=== PATIENT | male | born 1950 | race Caucasian/White ===

== ENCOUNTER 2018-08-15 07:02 | Day surgery (SDC) | payer MEDICARE, SELFPAY ==
--- NOTE | 2018-08-15 | PATH_ITS ---
[facility] Accession Number: [id number] . 01 Material submitted: . PART A: body - ULCER BIOPSIES PART B: colon - COLON POLYP BIOPSY AT 20CM . 01 Diagnosis: A. Stomach Ulcer, Biopsies: Gastric antral mucosa with mild chronic inflammation. Negative for Helicobacter organisms by immunohistochemistry. Negative for intestinal metaplasia, dysplasia or malignancy. . B. Colon Polyp at 20 cm, Biopsy: Colonic mucosa with prominent benign lymphoid aggregate. Negative for serrated lesion, dysplasia or malignancy. Additional step sections examined. V/08/17/2018 . 01 Electronically signed: . Bart Aldrich MD, PhD, Pathologist NPI- [id number] . 01 Gross description: . Part A: ULCER BIOPSIES: Received in formalin are 3 fragment(s) of davis, soft tissue measuring 0.1 x 0.1 x 0.1 cm to 0.3 x 0.2 x 0.2 cm which is entirely submitted and submitted entirely in 1 cassette(s) Part B: COLON POLYP BIOPSY AT 20CM: Received in formalin are 4 fragment(s) of davis, soft tissue measuring 0.1 x 0.1 x 0.1 cm to 0.4 x 0.3 x 0.2 cm which is entirely submitted and submitted entirely in 1 cassette(s) /D[facility] /DMC . 01 Microscopic: . A. An immunohistochemical stain is performed to evaluate for Helicobacter organisms and is negative. A control stain shows appropriate reactivity. . * This test was developed and its performance characteristics determined by [employer]. It has not been cleared or approved by the U.S. Food and Drug Administration. The FDA has determined that such clearance or approval is not necessary. This test is used for clinical purposes. It should not be regarded as investigational or for research. . 01 Pathologist provided ICD-10: K29.70, K63.5 . 01 CPT . 534461, 577331, R08329 Performed at: 01 [facility] [address], [place], [place] [id number] MD Amandeep Campos MD Phone: [phone]
[2018-08-15 07:25] VITALS: BP 151/84; PULSE 90; RESP 20; TEMP 36.7; O2SAT 100; BMI 26.6
[2018-08-15] MEDS: SODIUM CHLORIDE 0.9% 1,000 ML 100 ML IV (07:30)
--- NOTE | 2018-08-15 08:49 | PM.PREOP ---
Pre-operative Note Interval Note History & Physical reviewed/Exam performed by Physician: Yes Changes to H&P: No ASA Class (for procedural sedation): III
[2018-08-15] MEDS: LIDOCAINE 4% SOLN 50 ML 20 ML TOP (09:16)
--- NOTE | 2018-08-15 09:16 | P.OP.ENDO_ITS ---
Operative Date/Time/Diagnoses Date of procedure: 08/15/18 Time of procedure: 09:34 Pre-op diagnosis: Anemia cause uncertain rule out GI source Post-op diagnosis: same (Gastric ulcers. This was the most likely cause of anemia. Small polyps in the colon. Sigmoid diverticulosis.) Procedure & Clinicians Study performed: EGD with cold biopsy. Colonoscopy with cold biopsy Same procedure as scheduled: Yes Indications: Determine cause of anemia. Surgeon: Lalo Salazar Procedure Notes SCOAP/Timeout: Performed Procedure in detail: The patient had topical anesthetic applied to oropharynx. She was placed in left lateral decubitus position and underwent IV sedation directed by the surgeon consisting of fentanyl and Versed. A bite block was inserted and the scope was advanced through it into the esophagus. The esopha vasile was unremarkable. GE junction was noted at 41 cm from the incisors. The stomach insufflated well. the patient was noted to have multiple ulcers. One was in the pre-pyloric area and the others were in the proximal stomach. all were fairly superficial without evidence of clot . The pyloric channel was patent. The duodenum was unremarkable to the 4th part. The scope was brought back into the stomach and retroflexed. The proximal stomach was noted to have multiple small ulcers. There was no hiatal hernia seen. Biopsies were taken of the pre-pyloric and 1 ulcer in the body.. The scope was straightened and brought out through the esophagus again. No other lesions were seen. The scope was removed and the patient tolerated the procedure well. the patient was repositioned then for his colonoscopy. The patient was given additional fentanyl and Versed. Digital exam was remarkable for a very large prostate. The scope was inserted and advanced through the rectum into the sigmoid, descending, transverse, and ascending colon. The patient had sigmoid diverticulosis.. The cecum was reached identified by the ileocecal valve . The scope was gradually brought out. Polyps were found at 20 cm from the anal verge. These were removed with biopsy forceps. There were 2 of them.. The scope ultimately was retroflexed in the rectum. The appearance was remarkable for scarring on old hemorrhoidal disease.. The scope was removed and the patient tolerated the procedure well. prep was good. Scope withdrawal time: 10.5 minutes Sedation minutes: 50 Findings: diverticulosis (Sigmoid), gastric ulcer (Multiple), polyp (Small at 20 cm from the anal verge) and other findings (Large firm prostate) Specimen(s): other (Ulcer biopsies and polyps) Complications: none Recommendations: Colonscopy in 5 years and Other recommendation (EGD in 3 months.) Plan for aftercare: If H pylori found will add antibiotics to treatment regimen. Follow up: months (Three) Disposition: PACU
[2018-08-15] MEDS: TETRACAINE/BENZOCAINE/BUTAMBEN (CETACAINE) BOTTLE 1 SPRAY TOP (09:17)
[2018-08-15] MEDS: METOPROLOL TARTRATE 5 MG/5 ML INJ IV (09:34)
[2018-08-15] MEDS: fentaNYL 250 MCG/5 ML INJ IV (09:53)
[2018-08-15] MEDS: MIDAZOLAM 5 MG/5 ML VIAL IV (09:53)
[2018-08-15 09:56] VITALS: BP 108/73; PULSE 72; RESP 12; TEMP 35.6; O2SAT 100
[2018-08-15 10:01] VITALS: BP 106/68; PULSE 68; RESP 15; O2SAT 99
[2018-08-15 10:06] VITALS: BP 110/76; PULSE 74; RESP 14; O2SAT 100
--- NOTE | 2018-08-15 10:09 | SUR.PHASEI ---
Awake, oriented, swallowing w/o difficulty.
[2018-08-15 10:12] VITALS: BP 117/75; PULSE 75; RESP 12; TEMP 35.8; O2SAT 100
[2018-08-15 10:32] VITALS: BP 117/75; PULSE 62; RESP 16; TEMP 37; O2SAT 97
== END 2018-08-15 09:53 | disposition home or self-care (01) ==
PROVIDERS: Visit Provider Specialist
PROC: 0DJD8ZZ Inspection of Lower Intestinal Tract, Via Natural or Artificial Opening Endoscopic (ICD-10-PCS; CPT 45378; 2018-08-15 08:45)
PROC: 0DJ08ZZ Inspection of Upper Intestinal Tract, Via Natural or Artificial Opening Endoscopic (ICD-10-PCS; CPT 43235; 2018-08-15 08:45)
DX: K29.70 Gastritis, unspecified, without bleeding (principal); K25.9 Gastric ulcer, unspecified as acute or chronic, without hemorrhage or perforation; D64.9 Anemia, unspecified; Z80.0 Family history of malignant neoplasm of digestive organs; K57.30 Diverticulosis of large intestine without perforation or abscess without bleeding; N40.0 Benign prostatic hyperplasia without lower urinary tract symptoms; K63.5 Polyp of colon
CPT/HCPCS: 45380; 43239; 88305; 88342; 99152; 99153; J2250; J3010

== ENCOUNTER 2018-11-17 11:20 | Day surgery (SDC) | payer MEDICARE, SELFPAY ==
--- NOTE | 2018-11-17 | PATH_ITS ---
[facility] Accession Number: [id number] . 01 Material submitted: . gastrointestinal site - BIOPSY LESION ANTRUM . 02 Diagnosis: Biopsy, Gastric Antrum: Changes consistent with reactive gastropathy. Negative for evidence of neoplasm and/or significant atypia. MRV/11/20/2018 . 02 Electronically signed: . Prabhakar Grant MD, Pathologist NPI- [id number] . 01 Gross description: . BIOPSY LESION ANTRUM: Received in formalin are multiple fragment(s) of davis, soft tissue measuring 0.6 x 0.5 x 0.1 cm in aggregate submitted entirely in 1 cassette(s) /CKI /CKI . 02 Pathologist provided ICD-10: K31.89 . 02 CPT . 357138 Performed at: 01 [facility] [address] [id number] MD Amandeep Campos MD Phone: [phone] Performed at: 02 [facility] [address] [place], [place] [id number] MD Keila Mancini MD Phone: [phone]
--- NOTE | 2018-11-17 12:26 | PM.HP.1 ---
History of Present Illness Date Patient Seen: 11/17/18 Time Patient Seen: 12:26 Chief complaint: [id number] Narrative: The patient is a gentleman who had gastric ulcers diagnosed in August. He is here for follow-up exam to confirm healing he was asymptomatic then and except for gaining a little weight has not noticed any difference now. Patient History Medical History Anemia (Acute) Cancer of right lung (Acute) Lung cancer (Resolved) Surgical History History of lobectomy of lung (Resolved) Family History Father Cancer Diabetes mellitus Mother Diabetes mellitus Grandmother Diabetes mellitus Grandfather Diabetes mellitus Social History marital status: household members: spouse occupational status: previously employed Smoking Status: Never smoker alcohol intake: never substance use type: does not use Family & Social History Family History Father Cancer Diabetes mellitus Mother Diabetes mellitus Grandmother Diabetes mellitus Grandfather Diabetes mellitus Social History: household members spouse Tobacco & Substance use: Smoking Status Never smoker alcohol intake never Meds Home Medications Medication Instructions Recorded Confirmed Type acetaminophen 500 mg capsule 500 mg PO Q6H PRN 07/25/18 08/15/18 History ibuprofen 200 mg capsule 200 mg PO QID PRN 07/25/18 08/15/18 History melatonin 10 mg capsule 10 mg PO BEDTIME PRN 07/25/18 08/15/18 History metoprolol succinate ER 25 mg 25 mg PO DAILY 07/25/18 08/15/18 History capsule sprinkle, ext. release 24 hr omeprazole 20 mg PO BID #60 cap 08/15/18 Rx Allergies Allergy/AdvReac Type Severity Reaction Status Date / Time No Known Drug Allergies Allergy Verified 08/15/18 07:41 Review of Systems Review of Systems All systems reviewed & are unremarkable except as noted in HPI and below Exam Narrative Exam Narrative: Pleasant cooperative patient no apparent distress. Lungs are clear to auscultation. No rales or rhonchi. Heart regular rate and rhythm no murmur gallop. Abdomen is soft nontender without mass. No obvious hernias. Patient is alert and oriented x3. Assessment & Plan Assessment & Plan narrative: For EGD to confirm healing of ulcers. I have discussed the procedure including risks of bleeding perforation. He appears to understand wishes to proceed.
--- NOTE | 2018-11-17 12:28 | PM.PREOP ---
Pre-operative Note Interval Note History & Physical reviewed/Exam performed by Physician: Yes Changes to H&P: No ASA Class (for procedural sedation): III
[2018-11-17 12:34] VITALS: BP 153/78; PULSE 58; RESP 16; TEMP 36.5; O2SAT 100; BMI 27.1
[2018-11-17] MEDS: LIDOCAINE 4% SOLN 50 ML 20 ML TOP (12:56)
[2018-11-17] MEDS: TETRACAINE/BENZOCAINE/BUTAMBEN (CETACAINE) BOTTLE 1 SPRAY TOP (12:57)
[2018-11-17] MEDS: MIDAZOLAM 5 MG/5 ML VIAL IV (13:01)
[2018-11-17] MEDS: fentaNYL 250 MCG/5 ML INJ IV (13:01)
[2018-11-17 13:13] VITALS: BP 131/76; PULSE 56; RESP 12; TEMP 36.6; O2SAT 98
--- NOTE | 2018-11-17 13:15 | PM.OP.ENDO ---
Operative Date/Time/Diagnoses Date of procedure: 11/17/18 Time of procedure: 13:15 Pre-op diagnosis: History of a symptomatic gastric ulcers Post-op diagnosis: same (Active ulcer disease still present) Procedure & Clinicians Study performed: EGD with cold biopsy Same procedure as scheduled: Yes Indications: Confirm healing of ulcers Surgeon: Lalo Salazar Procedure Notes SCOAP/Timeout: Performed Procedure in detail: The patient had topical anesthetic applied to oropharynx. She was placed in left lateral decubitus position and underwent IV sedation directed by the surgeon consisting of fentanyl and Versed. A bite block was inserted and the scope was advanced through it into the esophagus. The esophagus was unremarkable. GE junction was noted at 45 cm from the incisors. There was no evidence of Baird's esophagus on visible evaluation. The stomach insufflated well. On entering the stomach there was a thin line of what appeared to be active bleeding. I irrigated and suctioned all the blood from the area and tried to identify its source. However, once I had suctioned all the fluid and blood there was no further bleeding. There were however obvious ulcers remaining including 1 large red area in the pre-pyloric location not too far from the incisura. The pyloric channel was patent. The duodenum was unremarkable to the 3rd part. There was no blood in the duodenum and no evidence of any lesions The scope was brought back into the stomach and retroflexed. The proximal stomach was normal in appearance. Biopsies were taken in the antrum of the lesions seen. The scope was straightened and brought out through the esophagus again. No lesions were seen. The scope was removed and the patient tolerated the procedure well. Scope withdrawal time: Not applicable Sedation minutes: 11 Findings: gastric ulcer (Multiple) Specimen(s): other (Biopsies) Complications: none Recommendations: Continue medication(s) (Omeprazole twice a day) Follow up: months (One) Disposition: PACU
[2018-11-17 13:18] VITALS: BP 126/75; PULSE 60; RESP 12; O2SAT 96
[2018-11-17 13:23] VITALS: BP 122/78; PULSE 56; RESP 12; O2SAT 97
[2018-11-17 13:46] VITALS: BP 127/79; PULSE 58; RESP 16; TEMP 36.1; O2SAT 100
== END 2018-11-17 14:00 | disposition home or self-care (01) ==
PROVIDERS: PCP Physician Assistant; Visit Provider Specialist
PROC: 0DJ08ZZ Inspection of Upper Intestinal Tract, Via Natural or Artificial Opening Endoscopic (ICD-10-PCS; CPT 43235; principal; 2018-11-17 12:45)
DX: K25.9 Gastric ulcer, unspecified as acute or chronic, without hemorrhage or perforation (principal); D64.9 Anemia, unspecified; K31.89 Other diseases of stomach and duodenum
CPT/HCPCS: 43239; 88305; 99152; J2250; J3010

== ENCOUNTER 2019-05-03 09:33 | Day surgery (SDC) | payer MEDICARE, OTHER, SELFPAY ==
[2019-05-03] VITALS (8 sets, daily range): BP systolic 125–157; BP diastolic 72–89; PULSE 68–84; RESP 10–17; TEMP 36.2–37.1; O2SAT 93–98; BMI 28.8
--- NOTE | 2019-05-03 | PATH_ITS ---
[facility] Accession Number: [id number] . 01 Material submitted: . gastrointestinal site - GASTRIC BIOPSIES . 01 Clinical history: . POST H. PYLORI TREATMENT . 02 Diagnosis: Stomach, Biopsies: Body-type mucosa with proton pump inhibitor-like changes. Negative for Helicobacter by immunohistochemistry. Negative for intestinal metaplasia by alcian blue stain. Negative for dysplasia and malignancy. MRV 05/07/2019 1352 Local . 02 Electronically signed: . Keila Mancini MD, Pathologist NPI- [id number] . 01 Gross description: . GASTRIC BIOPSIES: Received in formalin are multiple fragment(s) of davis, soft tissue measuring 0.5 x 0.5 x 0.1 cm in aggregate submitted entirely in 1 cassette(s) /[facility] 05/03/2019 2337 Local . 02 Microscopic: . An immunohistochemical stain was performed to evaluate for Helicobacter organisms and is negative. The control stain showed appropriate reactivity. . An alcian blue stain was performed to evaluate for intestinal metaplasia and is negative. The control stain showed appropriate reactivity. . * This test was developed and its performance characteristics determined by [facility]. It has not been cleared or approved by the U.S. Food and Drug Administration. The FDA has determined that such clearance or approval is not necessary. This test is used for clinical purposes. It should not be regarded as investigational or for research. . 02 Pathologist provided ICD-10: K25.9 . 02 CPT . 175156, 170251, R09292 Performed at: 01 [facility] [address] [facility], [place], [place] [id number] MD Amandeep Campos MD Phone: [phone] Performed at: 02 [facility] [place] [address] [place] [id number] MD Keila Mancini MD Phone: [phone]
[2019-05-03] MEDS: SODIUM CHLORIDE 0.9% 1,000 ML 200 ML IV (10:11)
--- NOTE | 2019-05-03 10:27 | PM.HP.1 ---
History of Present Illness History of Present Illness Date Patient Seen: 05/03/19 Time Patient Seen: 10:27 Chief complaint: [id number] Narrative: The patient is a gentleman with a history of gastric ulcers. He is relatively asymptomatic and therefore is brought back to confirm healing after 4 months of treatment Patient History Medical History Anemia (Acute) Cancer of right lung (Acute) Lung cancer (Resolved) Surgical History History of lobectomy of lung (Resolved) Family & Social History Family History Father Cancer Diabetes mellitus Mother Diabetes mellitus Grandmother Diabetes mellitus Grandfather Diabetes mellitus Social History: household members spouse Tobacco & Substance use: Smoking Status Never smoker alcohol intake never Meds Home Medications and Allergies Home Medications Medication Instructions Recorded Confirmed Type melatonin 10 mg capsule 10 mg PO BEDTIME PRN 07/25/18 05/03/19 History diphenhydramine-acetaminophen 1 tab PO BEDTIME PRN 11/17/18 05/03/19 History [Acetaminophen PM] omeprazole 40 mg capsule,delayed 40 mg PO BID #60 cap 01/02/19 05/03/19 Rx release acetaminophen [Acetaminophen Extra 1,000 mg PO BEDTIME 05/03/19 05/03/19 History Strength] atorvastatin 10 mg PO BEDTIME 05/03/19 05/03/19 History metoprolol tartrate 12.5 mg PO BID 05/03/19 05/03/19 History Allergies Allergy/AdvReac Type Severity Reaction Status Date / Time No Known Drug Allergies Allergy Verified 05/03/19 09:44 Review of Systems Review of Systems ROS Unobtainable: All systems reviewed & are unremarkable except as noted in HPI and below Exam Vital Signs (past 8 hours): - 05/03/19 09:52 Temperature 97.9 F Pulse Rate 84 Respiratory Rate 15 Blood Pressure 157/89 H Pulse Oximetry 98 Oxygen Delivery Method Room Air Narrative Exam Narrative: Pleasant cooperative patient no apparent distress. Lungs are clear to auscultation. No rales or rhonchi. Heart regular rate and rhythm no murmur gallop. Abdomen is soft nontender without mass. No obvious hernias. Patient is alert and oriented x3. Assessment & Plan Assessment & Plan narrative: Patient for an EGD. I've discussed the rationale and risks of bleeding perforation with him. Discussed the procedure with him as well. All questions answered.
--- NOTE | 2019-05-03 10:28 | PM.PREOP ---
Pre-operative Note Interval Note History & Physical reviewed/Exam performed by Physician: Yes Changes to H&P: No ASA Class (for procedural sedation): III
--- NOTE | 2019-05-03 10:46 | PM.OP.ENDO ---
Operative Date/Time/Diagnoses Date of procedure: 05/03/19 Time of procedure: 10:46 Pre-op diagnosis: History of gastric ulcers. Relatively asymptomatic despite the ulceration. Post-op diagnosis: same (Ulcers appeared to be healed) Procedure & Clinicians Study performed: EGD with cold biopsy Same procedure as scheduled: Yes Indications: Determine healing of ulcer Surgeon: Lalo Salazar Procedure Notes SCOAP/Timeout: Perform Procedure in detail: The patient had topical anesthetic applied to oropharynx. She was placed in left lateral decubitus position and underwent IV sedation directed by the surgeon consisting of fentanyl and Versed. A bite block was inserted and the scope was advanced through it into the esophagus. The esophagus was unremarkable. GE junction was noted at 45 cm from the incisors. The stomach insufflated well. There were no lesions seen in the body, antrum or at the incisura. The pyloric channel was patent though appeared somewhat fixed in opening. The duodenum was unremarkable to the 3rd part. The scope was brought back into the stomach and retroflexed. The proximal stomach normal in appearance. The scope was straightened and brought out through the esophagus again. No lesions were seen. The scope was removed and the patient tolerated the procedure well. Scope withdrawal time: Not applicable Sedation minutes: 11 Findings: other findings (Ulcers appeared to be healed. Random biopsies taken to rule out H pylori persistence) Specimen(s): other (Random gastric biopsies) Complications: none Post-procedure Recommendations: Other recommendation (Can taper meds to omeprazole once a day for month and then stop it) Plan for aftercare: He should follow-up with her family doctor in the future. Disposition: PACU
[2019-05-03] MEDS: LIDOCAINE 4% SOLN 50 ML 20 ML TOP (10:51)
[2019-05-03] MEDS: fentaNYL 250 MCG/5 ML INJ IV (10:51)
[2019-05-03] MEDS: MIDAZOLAM 5 MG/5 ML VIAL IV (10:51)
== END 2019-05-03 11:52 | disposition home or self-care (01) ==
PROVIDERS: PCP Physician Assistant; Visit Provider Specialist
PROC: 0DJ08ZZ Inspection of Upper Intestinal Tract, Via Natural or Artificial Opening Endoscopic (ICD-10-PCS; CPT 43235; principal; 2019-05-03 11:00)
DX: Z87.19 Personal history of other diseases of the digestive system (principal); D64.9 Anemia, unspecified
CPT/HCPCS: 43239; 99152; J2250; J3010

== ENCOUNTER → 2020-10-23 10:49 | Outpatient (CLI) | payer MEDICARE, SELFPAY ==
[2020-10-23 11:21] LABS: BUN Creatinine Ratio 23.5 (6-22); Blood Urea Nitrogen 27 mg/dL (9-20); Calcium 9.4 mg/dL (8.4-10.2); Carbon Dioxide 26 mmol/L (22-32); Chloride 104 mmol/L (98-107); Estimated Glomerular Filt Rate > 60.0 mL/min (>60); Glucose 104 mg/dL (80-110); HEMOLYSIS < 15 (0-50); Potassium 4.6 mmol/L (3.4-5.1); Sodium 136 mmol/L (137-145)
== END ==
PROVIDERS: PCP Family Medicine; Referring Provider Internal Medicine Pulmonary Disease; Visit Provider Internal Medicine Pulmonary Disease
DX: C34.91 Malignant neoplasm of unspecified part of right bronchus or lung (principal)
CPT/HCPCS: 36415; 80048

== ENCOUNTER → 2020-10-23 11:04 | Outpatient (CLI) | payer MEDICARE, OTHER, SELFPAY ==
--- NOTE | 2020-10-23 | DI.CT.S_ITS ---
PROCEDURE: CT CHEST W CON INDICATIONS: ADENOCARCINOMA TECHNIQUE: After the administration of intravenous contrast, 5 mm thick sections acquired from the pulmonary apices to the posterior costophrenic angles. 1 mm axial lung, 5 mm thick coronal and sagittal reformats and 7 mm axial MIP were acquired. For radiation dose reduction, the following was used: automated exposure control, adjustment of mA and/or kV according to patient size. COMPARISON: [facility], , CT THORAX WITH CONTRAST, 11/23/2019, 7:26. [facility], , CT THORAX WITH CONTRAST, 09/11/2018, 11:38. FINDINGS: Lungs: Postsurgical changes redemonstrated related to right lower lobectomy. Scattered subsegmental atelectasis and/or scarring. No focal consolidation. 2 mm nodule seen within the left upper lobe is mildly more conspicuous since the prior study from 11/23/19 however could be due to slice registration artifact and differences in exam technique. This was probably present on a more remote study dated 09/11/18 therefore probably benign nonetheless recommend continued attention on subsequent surveillance studies. Pleura: No pleural effusion or pneumothorax. Heart: Heart size is normal. No pericardial effusion. Chest nodes: Subcentimeter right hilar lymph node is unchanged since 09/11/18 on image 32/2. Thyroid gland: Negative Aorta: Normal in size. Pulmonary arteries: Normal. Esophagus: Normal. Upper abdomen: Hepatic steatosis incidentally noted. Bones: Diffuse spondylitic changes and facet arthropathy. IMPRESSION: Overall, grossly stable examination as detailed above. No specific evidence for active tumor. Dictated by: Tanner Conklin M.D. on 10/23/2020 at 17:02 Approved by: Tanner Conklin M.D. on 10/23/2020 at 17:10
== END ==
PROVIDERS: PCP Family Medicine; Referring Provider Internal Medicine Critical Care Medicine; Visit Provider Internal Medicine Critical Care Medicine
DX: C34.91 Malignant neoplasm of unspecified part of right bronchus or lung (principal); R91.1 Solitary pulmonary nodule; K76.0 Fatty (change of) liver, not elsewhere classified
CPT/HCPCS: 36415; 71260; 80048; Q9967

== ENCOUNTER → 2021-01-22 09:16 | Outpatient (CLI) | payer MEDICARE, OTHER, SELFPAY ==
[2021-01-22 11:24] LABS: COVID19 -Nasal RAPID Negative (Negative)
== END ==
PROVIDERS: PCP Family Medicine; Visit Provider Specialist
DX: Z01.812 Encounter for preprocedural laboratory examination (principal); Z20.822 Contact with and (suspected) exposure to COVID-19
CPT/HCPCS: 87635; C9803

== ENCOUNTER 2021-01-23 09:39 | Day surgery (SDC) | payer MEDICARE, OTHER, SELFPAY ==
[2021-01-23] VITALS (14 sets, daily range): BP systolic 106–167; BP diastolic 54–109; PULSE 41–63; RESP 11–19; TEMP 36.1–37.1; O2SAT 96–100; BMI 27.3
--- NOTE | 2021-01-23 | PATH_ITS ---
[facility] Accession Number: [id number] . 01 Material submitted: . gastrointestinal site - BIOPSY FOR H.PYLORI . 01 Clinical history: . SDC . 02 Diagnosis: Stomach, Biopsies: Antral and body type mucosa with mild chronic gastritis. Negative for Helicobacter by immunohistochemistry. Negative for intestinal metaplasia. Negative for dysplasia and malignancy. . [facility] 01/28/2021 1623 Local . 02 Electronically signed: . Keila Mancini MD, Pathologist NPI- [id number] . 01 Gross description: . BIOPSY FOR H.PYLORI: Received in formalin are multiple fragment(s) of davis, soft tissue measuring 2.4 x 0.5 x 0.1 cm in aggregate submitted entirely in 1 cassette(s) /[facility] 01/24/2021 0732 Local . 02 Microscopic: . An immunohistochemical stain was performed to evaluate for Helicobacter organisms and is negative. The control stain showed appropriate reactivity. . * This test was developed and its performance characteristics determined by [facility]. It has not been cleared or approved by the U.S. Food and Drug Administration. The FDA has determined that such clearance or approval is not necessary. This test is used for clinical purposes. It should not be regarded as investigational or for research. . 02 Pathologist provided ICD-10: K92.1 . 02 CPT . 581811, M80922 Performed at: 01 [facility] [address], [place], [place] [id number] MD Amandeep Campos MD Phone: [phone] Performed at: 02 [facility] [address] [place], [place] [id number] MD Keila Mancini MD Phone: [phone]
[2021-01-23] MEDS: LACTATED RINGERS 1,000 ML 200 ML IV ×2 (10:17→14:24)
--- NOTE | 2021-01-23 11:29 | PM.PREOP ---
Pre-operative Note COVID-19 COVID-19 status: Negative Result date/Date tested (Pos, Neg/Pending): 01/22/21 Interval Note History & Physical reviewed/Exam performed by Physician: Yes Changes to H&P: No ASA Class (for procedural sedation): II
[2021-01-23] MEDS: fentaNYL 250 MCG/5 ML INJ IV (11:37)
[2021-01-23] MEDS: MIDAZOLAM 5 MG/5 ML VIAL IV (11:37)
[2021-01-23] MEDS: LIDOCAINE 4% SOLN 50 ML 20 ML TOP (11:38)
[2021-01-23] MEDS: EPINEPHrine 1 MG/10 ML SYRINGE INJ (12:06)
--- NOTE | 2021-01-23 12:06 | PM.OP.ENDO ---
Operative Date/Time/Diagnoses Date of procedure: 01/23/21 Time of procedure: 12:06 Pre-op diagnosis: Melena Post-op diagnosis: same (Small punctate bleeding site in the proximal stomach. Was actively bleeding at the time of the exam otherwise it would not have been seen. Gastric ulcer appears to have healed.) Procedure & Clinicians Study performed: EGD with injection of epinephrine and cauterization of lesion. Same procedure as scheduled: Yes Indications: Melena Surgeon: Lalo Salazar Procedure Notes SCOAP/Timeout: Performed Procedure in detail: The patient had topical anesthetic applied to oropharynx. She was placed in the left lateral decubitus position and underwent IV sedation directed by the surgeon consisting of fentanyl and Versed. A bite block was inserted and the scope was advanced through it into the esophagus. The esophagus was unremarkable. GE junction was noted at 45 cm from the incisors. The stomach insufflated well. There was a fresh streak of new blood within the stomach. It appeared to be emanating from the stomach and not the duodenum. I decided to examine the duodenum 1st. Pyloric channel was patent. The duodenum was unremarkable to the 4th part except for some edematous folds. I could not find any inflammation or ulcers in the duodenum. Scope was brought back into the stomach and retroflexed. In The proximal stomach there was a punctate area that seemed to be the source of this bleeding. I carefully examined the rest of the stomach to make sure was not missing anything. The site of the ulcer I had seen on his prior endoscopy rate was healed and there was no evidence of any inflammation there. I chose to inject epinephrine solution around the punctate spot in the proximal stomach. It stopped the slight ooze that had been emanating from it. I then also cauterize the spot itself. I took random biopsies of the stomach to rule out H pylori. The scope was straightened and brought out through the esophagus again. No lesions were seen. The scope was removed and the patient tolerated the procedure well. Scope withdrawal time: Not applicable Sedation minutes: 28 Findings: other findings (Punctate bleeding site in the proximal stomach.) Specimen(s): other (Random stomach biopsies to rule out H pylori) Complications: none Post-procedure Recommendations: Continue medication(s) (Omeprazole) Follow up: months (1) Disposition: PACU
[2021-01-23] MEDS: ONDANSETRON 4 MG/2 ML INJ IV (12:44)
--- NOTE | 2021-01-23 13:07 | SUR.PHASEI ---
1234 Nauseated and burping and trying to throw up. Gingerale given which helped some at first then nausea come back. Zofran order gotten and given. Still burping alot and nauseated. Meanwhile heartrate down to 40s. BP high. Patient states his beta micaela does this to him. Left in phase 1 until stable
== END 2021-01-23 14:45 | disposition home or self-care (01) ==
PROVIDERS: PCP Family Medicine; Referring Provider Specialist; Visit Provider Specialist
PROC: 0DJ08ZZ Inspection of Upper Intestinal Tract, Via Natural or Artificial Opening Endoscopic (ICD-10-PCS; CPT 43235; principal; 2021-01-23 10:45)
DX: K92.1 Melena (principal); K29.50 Unspecified chronic gastritis without bleeding; Z87.11 Personal history of peptic ulcer disease; Z85.118 Personal history of other malignant neoplasm of bronchus and lung
CPT/HCPCS: 43255; 43239; 43236; 99152; 99153; J0171; J2250; J2405; J3010

== ENCOUNTER → 2021-12-11 15:37 | Outpatient (CLI) | payer MEDICARE, SELFPAY ==
--- NOTE | 2021-12-11 | DI.CT.S_ITS ---
PROCEDURE: CT CHEST WO CON INDICATIONS: COPD/LUNG CANCER TECHNIQUE: Noncontrast 5 mm thick sections acquired from the pulmonary apices to the posterior costophrenic angles. 1 mm lung window, 5 mm thick coronal and sagittal and 7 mm axial MIP reformats were then acquired. For radiation dose reduction, the following was used: automated exposure control, adjustment of mA and/or kV according to patient size. COMPARISON: [facility], CT, CT CHEST W CON, 10/23/2020, 11:52. FINDINGS: Image quality: Excellent. Lungs and pleura: Similar multifocal areas of scarring, particularly at the right apex multiple small pulmonary nodules are stable, for example in the left upper lobe maximum intensity projection series 4, image 25. No pleural effusions. Mediastinum: Coronary artery and valvular annular calcifications. Cardiomegaly. Similar ectatic ascending aorta . No adenopathy. Bones and chest wall: Thyroid within normal limits. No axillary adenopathy. No acute or suspicious osseous abnormality. Abdomen: Visualized upper abdominal solid organs and bowel loops appear normal in the absence of contrast. IMPRESSION: Stable pulmonary nodules compared to 10/23/2020. Stable multifocal areas of scarring. No pleural effusion. Other incidental/stable findings above. Dictated by: Pablo Elliott M.D. on 12/23/2021 at 10:14 Approved by: Pablo Elliott M.D. on 12/23/2021 at 10:21
== END ==
PROVIDERS: PCP Family Medicine; Referring Provider Internal Medicine Pulmonary Disease; Visit Provider Internal Medicine Pulmonary Disease
DX: C34.91 Malignant neoplasm of unspecified part of right bronchus or lung (principal); J44.9 Chronic obstructive pulmonary disease, unspecified; I25.10 Atherosclerotic heart disease of native coronary artery without angina pectoris; I51.7 Cardiomegaly
CPT/HCPCS: 71250

== ENCOUNTER → 2022-10-21 12:50 | Outpatient (CLI) | payer MEDICARE, SELFPAY ==
--- NOTE | 2022-10-21 | DI.CT.S_ITS ---
PROCEDURE: CT CHEST WO CON INDICATIONS: LUNG CANCER TECHNIQUE: Noncontrast 5 mm thick sections acquired from the pulmonary apices to the posterior costophrenic angles. 1 mm lung window, 5 mm thick coronal and sagittal and 7 mm axial MIP reformats were then acquired. For radiation dose reduction, the following was used: automated exposure control, adjustment of mA and/or kV according to patient size. COMPARISON: CT, CT CHEST W CON, 10/23/2020, 11:52. [facility], , CT THORAX WITH CONTRAST, 11/23/2019, 7:26. [facility], , CT THORAX WITH CONTRAST, 09/11/2018, 11:38. [facility], CT, CT CHEST WO CON, 12/11/2021, 16:02. FINDINGS: Image quality: Excellent. Lungs and pleura: There are postsurgical changes in the right lower lobe. No suspicious lung nodules. There are right apical scarring. Small lung nodules are present in left upper lobe, unchanged. Nodule 1: 3 mm; left upper lobe anterior; series 3, image 59. Nodule 2: 2 mm; left upper lobe posterior; seminal series 3, image 63. No acute air space opacities. No pleural effusions or pneumothorax. Central and peripheral airways are patent and normal in caliber. Mediastinum: Heart size is normal. No pericardial effusion. No mediastinal adenopathy by size criteria. Thoracic aorta and central pulmonary arteries are normal in size. Esophagus is normal in caliber. There is a small hiatal hernia. Bones and chest wall: No suspicious bony lesions. No vertebral body compression fractures. No axillary or supraclavicular adenopathy by size criteria. Thyroid gland is normal. Abdomen: Visualized upper abdominal solid organs and bowel loops appear normal in the absence of contrast. IMPRESSION: 1. Stable postsurgical changes in the right lower lobe. 2. Small left upper lobe pulmonary nodules. 3. No lymphadenopathy. Dictated by: Donny Tran M.D. on 10/21/2022 at 15:39 Approved by: Donny Tran M.D. on 10/21/2022 at 15:51
== END ==
PROVIDERS: PCP Family Medicine; Referring Provider Internal Medicine Critical Care Medicine; Visit Provider Internal Medicine Critical Care Medicine
DX: C34.91 Malignant neoplasm of unspecified part of right bronchus or lung (principal); K44.9 Diaphragmatic hernia without obstruction or gangrene; R91.8 Other nonspecific abnormal finding of lung field
CPT/HCPCS: 71250

== ENCOUNTER → 2023-10-11 14:45 | Outpatient (CLI) | payer MEDICARE, SELFPAY ==
--- NOTE | 2023-10-11 14:47 | DI.CT.S_ITS ---
PROCEDURE: CT CHEST WO CON INDICATIONS: Chronic obstructive pulmonary disease, unspecified TECHNIQUE: Noncontrast 5 mm thick sections acquired from the pulmonary apices to the posterior costophrenic angles. 1 mm lung window, 5 mm thick coronal and sagittal and 7 mm axial MIP reformats were then acquired. For radiation dose reduction, the following was used: automated exposure control, adjustment of mA and/or kV according to patient size. COMPARISON: [facility], CT, CT CHEST WO CON, 10/21/2022, 13:13. FINDINGS: Image quality: Diagnostic. Lower Neck: No enlarged lymph nodes. Thyroid: Normal CT appearance. Axillae: No enlarged lymph nodes. Chest Wall: Unremarkable. Bones: No suspicious bone lesions. Several minor central superior endplate indentations in the thoracic spine. Lungs and Pleura: Surgical changes of partial right lower lobectomy. Several areas of subpleural and pleural parenchymal scarring in the right. Tiny, stable, left apical lung nodules. The left lung is otherwise clear. Central and peripheral airways are normal without bronchial wall thickening or bronchiectasis. Moderate right apical pleural plaquing. No pleural effusion or pleural calcification. No suspicious nodule or mass. Heart: Heart size is normal. No pericardial effusion. Moderate aortic valvular calcification. Thoracic Vessels: The aorta and pulmonary arteries demonstrate normal size. Mediastinum and Jasmin: No enlarged lymph nodes. Esophagus: No wall thickening. No hiatal hernia. Upper Abdomen: Visualized upper abdomen solid organs and bowel loops appear normal. IMPRESSION: Prior partial right lower lobectomy without evidence of residual or recurrent disease. No new adenopathy or pleural effusion. Dictated by: Carolyne Garcia M.D. on 10/11/2023 at 23:30 Approved by: Carolyne Garcia M.D. on 10/11/2023 at 23:36
== END ==
PROVIDERS: PCP Family Medicine; Referring Provider Internal Medicine Critical Care Medicine; Visit Provider Internal Medicine Critical Care Medicine
DX: C34.91 Malignant neoplasm of unspecified part of right bronchus or lung (principal); J44.9 Chronic obstructive pulmonary disease, unspecified
CPT/HCPCS: 71250